=== PATIENT | female | born 1995 | race Caucasian/White ===

== ENCOUNTER 2021-02-18 02:20 | Emergency (ER) | payer OTHER ==
[~2021-02-18] VITALS: Ht 165.1 cm; Wt 86.2 kg
[2021-02-18 04:23] LABS: ABSOLUTE NEUTROPHILS 3.4 thou/uL (1.4-8.2); BASOPHILS 0.9 % (0.0-2.0); EOSINOPHILS 5.3 % (0.0-3.0); HEMATOCRIT 39.6 % (37.0-47.0); HEMOGLOBIN 12.8 gm/dL (12.0-15.0); LYMPHOCYTES 40.8 % (24.0-44.0); MCH 25.8 pg (26.0-34.0); MCHC 32.4 g/dL (28.0-37.0); MCV 79.8 fL (80.0-100.0); MONOCYTES 4.5 % (1.0-8.0); PLATELET COUNT 263 thou/uL (150-400); POLYS 48.5 % (36.0-66.0); RBC 4.96 mil/uL (4.20-5.00); RDW 15.8 % (10.5-14.5); WBC 7.7 thou/uL (4.0-11.0)
[2021-02-18 04:25] LABS: CALCIUM 8.5 mg/dL (8.5-10.1); CREATININE 0.7 mg/dL (0.6-1.0); POTASSIUM 3.9 mmol/L (3.5-5.1)
[2021-02-18 04:35] LABS: TOTAL BILIRUBIN 2.1 mg/dL (0.2-1.0); TOTAL PROTEIN 7.6 g/dL (6.4-8.2)
[2021-02-18 06:10] LABS: URINE BILIRUBIN NEGATIVE (Negative); URINE BLOOD NEGATIVE (Negative); URINE CLARITY CLEAR; URINE COLOR YELLOW; URINE GLUCOSE-RANDOM* NEGATIVE (Negative); URINE KETONES 1+ (Negative); URINE LEUKOCYTES-REFLEX NEGATIVE (Negative); URINE NITRITE-REFLEX NEGATIVE (Negative); URINE PROTEIN (DIPSTICK) NEGATIVE (Negative); URINE SPECIFIC GRAVITY <= 1.005 (1.005-1.035)
[2021-02-18] MEDS ORDERED: MECLIZINE HCL25 M1 PO (06:58)
[2021-02-18] MEDS ORDERED: VALIUM2 MG PO (06:58)
[2021-02-18 07:07] VITALS: BP 124/43
--- NOTE | 2021-02-18 07:20 | EKG ---
[address] [address] ELECTROCARDIOGRAM REPORT Name: JUSTICE CHAN Room #: REG JAYDEN Reis#: [id number] Admission: 02/18/21 Attend Phys: Discharge: Date of : [birth year] Report #: [id number] [facility] ED Test Date: 2021-02-18 Test Time: 02:30:26 Pat Name: JUSTICE CHAN Department: Room: Gender: F Community Outreach Manager: [email or web address] : 1995 Requested By: Bar Alvares Order Number: [id number] MD: Anderson Rodriguez Measurements Intervals [place] Rate: 56 P: 65 ID: [id number] QRS: 82 QRSD: 95 T: 61 QT: 452 QTc: 437 Interpretive Statements Sinus rhythm ST elev, probable normal early repol pattern No previous ECG available for comparison Electronically Signed On 02-18-2021 7:20:25 [employer] by Anderson Rodriguez [email or web address] <ELECTRONICALLY SIGNED> By: Anderson Rodriguez MD, [facility] 02/18/21 0720 0230 0230 Anderson Rodriguez MD, FACC /EPI
== END 2021-02-18 07:07 | disposition home or self-care (01) ==
LOC: ER 02:20 → EDBD 02:20 → ER 07:07
PROVIDERS: Emergency Medicine
DX: R42 Dizziness and giddiness (principal); Z20.822 Contact with and (suspected) exposure to COVID-19; R82.2 Biliuria; F41.9 Anxiety disorder, unspecified; F31.9 Bipolar disorder, unspecified